=== PATIENT | female | born 1955 | race Asian ===

== ENCOUNTER 2018-09-21 08:56 | Day surgery (SDC) | payer OTHER ==
[2018-09-21] MEDS ORDERED: MIDAZOLAM 1 MG/ML 2 ML INJ (10:46)
[2018-09-21] MEDS ORDERED: FENTAnyl 50 MCG/ML VIAL (10:46)
== END 2018-09-21 11:32 | disposition home or self-care (01) ==
LOC: GIL 08:56
DX: Z12.11 Encounter for screening for malignant neoplasm of colon (principal); K64.8 Other hemorrhoids; D12.5 Benign neoplasm of sigmoid colon; I10 Essential (primary) hypertension
CPT/HCPCS: 45384; 88305